=== PATIENT | male | born 1945 | race Caucasian/White ===

== ENCOUNTER 2021-06-19 14:54 | Emergency (ER) | payer MEDICARE, SELFPAY ==
[2021-06-19 15:02] VITALS: BP 103/59; PULSE 81; RESP 16; TEMP 36.3; O2SAT 100
--- NOTE | 2021-06-19 15:41 | ED.WOUNDLAC ---
HPI - Wound/Laceration General Chief Complaint: Wound/Laceration Stated Complaint: Laceration to Left Hand Time Seen by Provider: 06/19/21 15:20 Source: patient, RN notes reviewed and old records reviewed Mode of arrival: ambulatory Limitations: no limitations History of Present Illness HPI narrative: 76 [facility] old [facility] to the dorsal left hand from cutting kindling with a hatchet and accidentally cut his left dorsal hand between his thumb and first finger. Patient has 3cm linear wound to the dorsal left hand with bleeding controlled at present time, patient is on daily Eliquis anticoagulant therapy. Patient reports that his tetanus is up to date. Patient has full mobility of his thumb and left index finger with no tingling or numbness to left hand or fingers, strong left radial pulse present. Patient is right hand dominant. Onset (ago): hour(s) (1 hour ago at home) Extremity Location: Left: hand (dorsal aspect between thumb and 1st finger) Place: home Patient tetanus UTD: Yes Context: accidental Associated symptoms: none Treatments prior to arrival: bandage Related Data Home Medications Medication Instructions Recorded Confirmed apixaban [Eliquis] 5 mg PO BID 06/19/21 06/19/21 aspirin [Adult Low Dose Aspirin] 81 mg PO DAILY 06/19/21 06/19/21 carvedilol [Coreg] 6.25 mg PO BID 06/19/21 06/19/21 diltiazem HCl 180 mg PO DAILY 06/19/21 06/19/21 famotidine 40 mg PO DAILY 06/19/21 06/19/21 finasteride 5 mg PO DAILY 06/19/21 06/19/21 levalbuterol HCl 1.25 mg INHALATION Q4H 06/19/21 06/19/21 lisinopril 5 mg PO DAILY 06/19/21 06/19/21 simvastatin 40 mg PO DAILY 06/19/21 06/19/21 spironolactone 25 mg PO DAILY 06/19/21 06/19/21 tamsulosin 0.4 mg PO DAILY 06/19/21 06/19/21 tiotropium-olodaterol 2 puff INHALATION Q24H 06/19/21 06/19/21 tramadol 50 mg PO Q6H PRN 06/19/21 06/19/21 Allergies Allergy/AdvReac Type Severity Reaction Status Date / Time pneumococcal vaccine Allergy Swelling Verified 06/19/21 15:27 Review of Systems Review of Systems: CONSTITUTIONAL: Denies fever, chills, or sweats. EYES: Denies visual changes, redness, or discharge. ENT: Denies rhinorrhea, congestion, sore throat, or otalgia. CARDIOVASCULAR: Denies chest pain, palpitations, or edema. RESPIRATORY: Denies cough or dyspnea. GASTROINTESTINAL: Denies abdominal pain, nausea, vomiting, or diarrhea. GENITOURINARY: Denies dysuria or hematuria. SKIN: Denies rash or itching.positive for laceration to dorsal aspect of left hand between thumb and index finger MUSCULOSKELETAL: some chronic back pain, joint pain, or myalgia. NEUROLOGIC: Denies headache, numbness, or weakness. PSYCHIATRIC: Denies anxiety or depression. All systems reviewed & are unremarkable except as noted in HPI and below PMFSH Past Medical History Medical History (Updated 06/19/21 @ 21:53 by Elke Sanchez NP) Afib BPH (benign prostatic hyperplasia) CAD (coronary artery disease) COPD (chronic obstructive pulmonary disease) GERD (gastroesophageal reflux disease) Hyperlipidemia Surgical History Surgical History (Updated 06/19/21 @ 21:46 by Elke Sanchez NP) H/O lumbosacral spine surgery x2 Hx of cardiac catheterization stents X2 Hx of mastoidectomy right ear Social History Social History (Updated 06/19/21 @ 21:43 by Elke Sanchez NP) Smoking status: Former smoker Tobacco type: cigarettes Alcohol intake: unknown Substance use: unknown Living arrangements: with family Gender identity (if verbalized by the patient): Male Comments At time of signature, agree with nursing past medical, surgical, social and family history. There is no relevant family history pertinent to the presenting complaint Exam Narrative: GENERAL: Well-appearing, well-nourished, and in no acute distress. HEAD: Normocephalic, atraumatic. EYES: PERRLA and EOMI. ENT: Nares clear, no rhinorrhea or epistaxis. Mucous membranes moist.TM's normal with go
== END 2021-06-19 16:18 | disposition home or self-care (01) ==
PROVIDERS: Emergency Provider Registered Nurse
DX: S61.412A Laceration without foreign body of left hand, initial encounter (principal); W27.8XXA Contact with other nonpowered hand tool, initial encounter; Z87.891 Personal history of nicotine dependence; I48.91 Unspecified atrial fibrillation; N40.0 Benign prostatic hyperplasia without lower urinary tract symptoms; I25.10 Atherosclerotic heart disease of native coronary artery without angina pectoris; J44.9 Chronic obstructive pulmonary disease, unspecified; K21.9 Gastro-esophageal reflux disease without esophagitis; E78.5 Hyperlipidemia, unspecified
CPT/HCPCS: 12002; 99213; G0463